=== PATIENT | female | born 1975 | race Caucasian/White ===

== ENCOUNTER 2017-11-10 00:08 | Emergency (ER) | payer OTHER ==
[~2017-11-10] VITALS: Ht 160 cm; Wt 70.0 kg
[~2017-11-10 00:08] MED LIST: CITA20 PO; LORA1TAB PO
[2017-11-10 00:40] VITALS: BP 120/67; PULSE 87; RESP 18; TEMP 98.8; O2SAT 98
[2017-11-10] MEDS ORDERED: TRAZ1TAB14 PO (00:55)
[2017-11-10] MEDS ORDERED: PROT40TA PO (00:55)
[2017-11-10] MEDS ORDERED: LORA-474 PO (00:55)
[2017-11-10] MEDS ORDERED: INHALER (00:55)
[2017-11-10] MEDS ORDERED: TOPI200 PO (00:55)
[2017-11-10] MEDS ORDERED: SERO100T PO (00:55)
[2017-11-10 02:22] LABS: BACTERIA, URINE RARE /hpf; BILIRUBIN, URINE NEG (NEG); BLOOD, URINE NEG (NEG); GLUCOSE,URINE NEG (NEG); HYALINE CAST, URINE 1 /lpf (RARE); KETONE, URINE NEG (NEG); MUCUS URINE FEW /lpf (OCC); NITRITE,URINE NEG (NEG); SQUAMOUS EPITHELIAL CELL URINE 1 /hpf (0-5); URINE COLOR YELLOW (YELLW/STRAW); URINE LEUKOCYTE ESTERASE NEG (NEG)
[2017-11-10 02:24] LABS: ALBUMIN 3.5 GM/DL (3.4-5.0); ALT (GPT) 40 U/L (10-53); AST (GOT) 47 U/L (15-37); BICARBONATE 20.7 MEQ/L (21.0-32.0); BLOOD UREA NITROGEN 9 MG/DL (7-18); CALCIUM 8.1 MG/DL (8.5-10.1); CHLORIDE 114 MEQ/L (98-107); CREATININE 0.96 MG/DL (0.50-1.00); GLOMERULAR FILTRATION RATE 64 ML/MIN (>89); GLUCOSE,RANDOM 83 MG/DL (74-106); SODIUM (NA) 143 MEQ/L (136-145)
[2017-11-10 02:26] LABS: AUTOMATED NEUTROPHIL # 3.7 TH/MM3 (1.8-7.7); BASOPHIL # 0.1 TH/MM3 (0-0.2); BASOPHIL % 0.8 % (0.0-2.0); EOSINOPHIL # 0.3 TH/MM3 (0-0.4); EOSINOPHIL % 5.4 % (0.0-4.0); HEMATOCRIT 32.4 % (35.0-46.0); HEMOGLOBIN 10.9 GM/DL (11.6-15.3); LYMPH % 31.9 % (9.0-44.0); MEAN CELL VOLUME 80.2 FL (80.0-100.0); MEAN CORPUSCULAR HGB CONC 33.7 % (32.0-36.0); MEAN PLATELET VOLUME 10.4 FL (7.0-11.0); MONOCYTE # 0.3 TH/MM3 (0-0.9); NEUT % 56.9 % (16.0-70.0); PLATELET COUNT 195 TH/MM3 (150-450); RED BLOOD COUNT 4.04 MIL/MM3 (4.00-5.30); RED CELL DISTRIBUTION WIDTH 14.1 % (11.6-17.2); WHITE BLOOD COUNT 6.4 TH/MM3 (4.0-11.0)
[2017-11-10 02:34] LABS: ACETAMINOPHEN LESS THAN 2.0 MCG/ML (10.0-30.0); ALKALINE PHOSPHATASE 138 U/L (45-117); TOTAL BILIRUBIN ADULT 0.2 MG/DL (0.2-1.0); TOTAL PROTEIN 7.3 GM/DL (6.4-8.2)
[2017-11-10] MEDS ORDERED: IBUPROFEN 600 MG TAB PO ONE (02:45)
--- NOTE | 2017-11-10 02:54 | PD ---
HPI Chief Complaint: Psychiatric Symptoms Time Seen by Provider: 00:53 Travel History International Travel<30 days: No Contact w/Intl Traveler<30days: No Traveled to known affect area: No History of Present Illness HPI 42-year-old female presents emergency department under Stallworth act by PD. The patient allegedly has been taking more than her prescribed Ativan. She states that she has been extremely stressed at home with her family. She denies any suicidal homicidal ideation. She does complain of lower back pain. She denies any dysuria or frequency. No vaginal discharge or abnormal bleeding. PFSH Past Medical History Asthma: Yes Bipolar Disorder: Yes Anxiety: Yes Diabetes: No Diminished Hearing: No Psychiatric: Yes Tetanus Vaccination: < 5 Years ?: Not : 3 Para: 1 Past Surgical History Cholecystectomy: Yes (1995) Hysterectomy: Yes Social History Alcohol Use: No Tobacco Use: No Substance Use: No Allergies-Medications (Allergen,Severity, Reaction): Coded Allergies: cat dander (Unverified Allergy, Severe, 11/10/17) iodine (Unverified Allergy, Severe, Fever, 11/10/17) Fever, Hives, Throat swells up. milk (Unverified Allergy, Severe, Fever, 11/10/17) Fever, Hives, Throat swells up. potassium iodide (Unverified Allergy, Severe, Fever, 11/10/17) Fever, Hives, Throat swells up. povidone-iodine (Unverified Allergy, Severe, Fever, 11/10/17) Fever, Hives, Throat swells up. sodium iodide (Unverified Allergy, Severe, Fever, 11/10/17) Fever, Hives, Throat swells up. sodium iodide (Unverified Allergy, Severe, Fever, 11/10/17) Fever, Hives, Throat swells up. Reported Meds & Prescriptions Reported Meds & Active Scripts Active Reported [Inhaler] Seroquel (Quetiapine Fumarate) 100 Mg Tab 150 Mg PO DAILY Trazodone (Trazodone HCl) 150 Mg Tablet 150 Mg PO HS Topamax (Topiramate) 200 Mg Tab 200 Mg PO BID Protonix (Pantoprazole Sodium) 40 Mg Tab 40 Mg PO DAILY Ativan (Lorazepam) 1 Mg Tab 1 Mg PO Q6H PRN Review of Systems General / Constitutional: No: Fever Eyes: No: Visual changes HENT: No: Headaches Cardiovascular: No: Chest Pain or Discomfort Respiratory: No: Shortness of Breath Gastrointestinal: No: Abdominal Pain Genitourinary: No: Dysuria Musculoskeletal: Positive: Pain, No: Myalgias, Arthralgias, Limited ROM Skin: No Rash Neurologic: No: Weakness Psychiatric: Positive: Depression, Mood Disorder, No: Suicidal Ideations, Disorder of Thought, Substance Abuse, Homicidal Ideation Endocrine: No: Polydipsia Hematologic/Lymphatic: No: Easy Bruising Physical Exam Narrative GENERAL: Well-nourished, well-developed patient. SKIN: Warm and dry. HEAD: Normocephalic and atraumatic. EYES: No scleral icterus. No injection or drainage. ENT: No nasal drainage noted. Mucous membranes pink. Airway patent. NECK: Supple, trachea midline. Moves head freely without obvious discomfort. CARDIOVASCULAR: Regular rate and rhythm without murmurs, gallops, or rubs. RESPIRATORY: Breath sounds equal bilaterally. No accessory muscle use. GASTROINTESTINAL: Abdomen soft, non-tender, nondistended. EXTREMITIES: No cyanosis or edema. BACK: Tender lower lumbar region without obvious deformity. No CVA tenderness. NEURO: Patient is alert and oriented. no sensorimotor deficits. Nonfocal. Normal speech. PSYCH: No delusions. No auditory or visual hallucinations. Data Data Last Documented VS Vital Signs Date Time Temp Pulse Resp B/P (MAP) Pulse Ox O2 Delivery O2 Flow Rate FiO2 11/10/17 00:40 98.8 87 18 120/67 (84) 98 Orders Orders Complete Blood Count With Diff (11/10/17 00:52) Comprehensive Metabolic Panel (11/10/17 00:52) Thyroid Stimulating Hormone (11/10/17 00:52) Urinalysis - C+S If Indicated (11/10/17 00:52) Ed Urine Pregnancytest Poc (11/10/17 00:52) Psych Screen (11/10/17 00:52) Drug Screen, Random Urine (11/10/17 00:52) Alcohol (Ethanol) (11/10/17 00:52) Salicylates (Aspirin) (11/10/17 00:52) Tylenol (Acetaminophen) (11/10/17 00:52) Ibuprofen (Motrin) (11/10/17 02:45) Labs Laboratory Tests Test 11/10/17 01:20 White Blood Count 6.4 TH/MM3 Red Blood Count 4.04 MIL/MM3 Hemoglobin 10.9 GM/DL Hematocrit 32.4 % Mean Corpuscular Volume 80.2 FL Mean Corpuscular Hemoglobin 27.0 PG Mean Corpuscular Hemoglobin Concent 33.7 % Red Cell Distribution Width 14.1 % Platelet Count 195 TH/MM3 Mean Platelet Volume 10.4 FL Neutrophils (%) (Auto) 56.9 % Lymphocytes (%) (Auto) 31.9 % Monocytes (%) (Auto) 5.0 % Eosinophils (%) (Auto) 5.4 % Basophils (%) (Auto) 0.8 % Neutrophils # (Auto) 3.7 TH/MM3 Lymphocytes # (Auto) 2.0 TH/MM3 Monocytes # (Auto) 0.3 TH/MM3 Eosinophils # (Auto) 0.3 TH/MM3 Basophils # (Auto) 0.1 TH/MM3 CBC Comment DIFF FINAL Differential Comment Urine Color YELLOW Urine Turbidity CLEAR Urine pH 6.0 Urine Specific [place] 1.020 Urine Protein NEG mg/dL Urine Glucose (UA) NEG mg/dL Urine Ketones NEG mg/dL Urine Occult Blood NEG Urine Nitrite NEG Urine Bilirubin NEG Urine Urobilinogen LESS THAN 2.0 MG/DL Urine Leukocyte Esterase NEG Urine WBC 2 /hpf Urine Squamous Epithelial Cells 1 /hpf Urine Bacteria RARE /hpf Urine Hyaline Casts 1 /lpf Urine Mucus FEW /lpf Microscopic Urinalysis Comment CULT NOT INDICATED Blood Urea Nitrogen 9 MG/DL Creatinine 0.96 MG/DL Random Glucose 83 MG/DL Total Protein 7.3 GM/DL Albumin 3.5 GM/DL Calcium Level 8.1 MG/DL Alkaline Phosphatase 138 U/L Aspartate Amino Transf (AST/SGOT) 47 U/L Alanine Aminotransferase (ALT/SGPT) 40 U/L Total Bilirubin 0.2 MG/DL Sodium Level 143 MEQ/L Potassium Level 3.6 MEQ/L Chloride Level 114 MEQ/L Carbon Dioxide Level 20.7 MEQ/L Anion Gap 8 MEQ/L Estimat Glomerular Filtration Rate 64 ML/MIN Thyroid Stimulating Hormone 3rd Gen 0.679 uIU/ML Salicylates Level LESS THAN 1.7 MG/DL Urine Opiates Screen POS Acetaminophen Level LESS THAN 2.0 MCG/ML Urine Barbiturates Screen NEG Urine Amphetamines Screen NEG Urine Benzodiazepines Screen NEG Urine Cocaine Screen NEG Urine Cannabinoids Screen NEG Ethyl Alcohol Level LESS THAN 3 MG/DL MDM Medical Decision Making Medical Screen Exam Complete: Yes Emergency Medical Condition: Yes Medical Record Reviewed: Yes Interpretation(s) Laboratory Tests Test 11/10/17 01:20 White Blood Count 6.4 TH/MM3 Red Blood Count 4.04 MIL/MM3 Hemoglobin 10.9 GM/DL Hematocrit 32.4 % Mean Corpuscular Volume 80.2 FL Mean Corpuscular Hemoglobin 27.0 PG Mean Corpuscular Hemoglobin Concent 33.7 % Red Cell Distribution Width 14.1 % Platelet Count 195 TH/MM3 Mean Platelet Volume 10.4 FL Neutrophils (%) (Auto) 56.9 % Lymphocytes (%) (Auto) 31.9 % Monocytes (%) (Auto) 5.0 % Eosinophils (%) (Auto) 5.4 % Basophils (%) (Auto) 0.8 % Neutrophils # (Auto) 3.7 TH/MM3 Lymphocytes # (Auto) 2.0 TH/MM3 Monocytes # (Auto) 0.3 TH/MM3 Eosinophils # (Auto) 0.3 TH/MM3 Basophils # (Auto) 0.1 TH/MM3 CBC Comment DIFF FINAL Differential Comment Urine Color YELLOW Urine Turbidity CLEAR Urine pH 6.0 Urine Specific [place] 1.020 Urine Protein NEG mg/dL Urine Glucose (UA) NEG mg/dL Urine Ketones NEG mg/dL Urine Occult Blood NEG Urine Nitrite NEG Urine Bilirubin NEG Urine Urobilinogen LESS THAN 2.0 MG/DL Urine Leukocyte Esterase NEG Urine WBC 2 /hpf Urine Squamous Epithelial Cells 1 /hpf Urine Bacteria RARE /hpf Urine Hyaline Casts 1 /lpf Urine Mucus FEW /lpf Microscopic Urinalysis Comment CULT NOT INDICATED Blood Urea Nitrogen 9 MG/DL Creatinine 0.96 MG/DL Random Glucose 83 MG/DL Total Protein 7.3 GM/DL Albumin 3.5 GM/DL Calcium Level 8.1 MG/DL Alkaline Phosphatase 138 U/L Aspartate Amino Transf (AST/SGOT) 47 U/L Alanine Aminotransferase (ALT/SGPT) 40 U/L Total Bilirubin 0.2 MG/DL Sodium Level 143 MEQ/L Potassium Level 3.6 MEQ/L Chloride Level 114 MEQ/L Carbon Dioxide Level 20.7 MEQ/L Anion Gap 8 MEQ/L Estimat Glomerular Filtration Rate 64 ML/MIN Thyroid Stimulating Hormone 3rd Gen 0.679 uIU/ML Salicylates Level LESS THAN 1.7 MG/DL Urine Opiates Screen POS Acetaminophen Level LESS THAN 2.0 MCG/ML Urine Barbiturates Screen NEG Urine Amphetamines Screen NEG Urine Benzodiazepines Screen NEG Urine Cocaine Screen NEG Urine Cannabinoids Screen NEG Ethyl Alcohol Level LESS THAN 3 MG/DL Differential Diagnosis MDM: High Differential diagnoses: Schizophrenia, schizoaffective disorder, bipolar, anxiety, depression, adjustment reaction, mood disorder NOS, ODD, depressive disorder NOS, dementia, dementia with agitation, psychosis NOS, substance induced mood disorder, DMDD, Asperger syndrome, infection,electrolyte abnormality, malingering. Narrative Course Mental health screening discussed with the patient. Psychiatric screen ordered. The patient reports taking Ativan for anxiety. Her drug screen is negative for benzos but is positive for opiates. She denies opiates. The patient has been medically cleared. This is medical clearance for psychiatric admission Diagnosis Primary Impression: Medical clearance for psychiatric admission Condition: Russell Goodman Nov 10, 2017 02:54
[2017-11-10 03:55] VITALS: BP 110/53; PULSE 84; RESP 16; O2SAT 99
[2017-11-10 09:30] VITALS: BP 124/69; PULSE 88; RESP 18; O2SAT 99
[2017-11-10 19:05] VITALS: BP 107/58; PULSE 89; RESP 18
[2017-11-10] MEDS ORDERED: traZODone HCL 100 MG TAB PO SCH (21:00)
[2017-11-10] MEDS ORDERED: QUEtiapine FUMARATE 100 MG TAB PO SCH (21:00)
[2017-11-10 22:38] VITALS: BP 107/55; PULSE 93; RESP 17; TEMP 99; O2SAT 100
[2017-11-11 02:35] VITALS: BP 93/51; PULSE 66; RESP 18; TEMP 98.1; O2SAT 100
[2017-11-11 06:41] VITALS: BP 97/53; PULSE 70; RESP 18; TEMP 98.2; O2SAT 99
--- NOTE | 2017-11-11 10:27 | PD ---
History of Present Illness Chief Complaint: adjustment disorder Time Seen by Provider: 09:45 Travel History International Travel<30 Days: No Contact w/Intl Traveler<30days: No Known affected area: No Legal Status Legal Status: St[place]worth Act [facility] [facility] Comment: SIGNED BY: JUAN ALBERTO GONZALEZ # [id number], 11/09/17 @ [id number] History of Present Illness: 42 year-old , female presents under a Stallworth Act with [facility]'s office. Patient has not been to this facility for several years , however she reports admissions at [facility]. She reports a history of bipolar and schizophrenia, and states that she is compliant with her medications. Reviewed electronic medical record, labs, and discussed case with staff. Toxicology screen is positive for opiates. Patient evaluated in her room in J pod. She is awake, alert, and oriented. Her speech is clear, logical, and organized. She denies thoughts of self harm, homicidal ideation, visual and auditory hallucinations. I can elicit no delusional material. Her mood is good and her affect is euthymic. Patient does not appear to be internally stimulated. She reports that she has had a toothache that she took 1 of her husbands prescribed Percocet. She believes that the Percocet in conjunction with her other medications caused her change in behavior. Which does explain her toxicology screen. She also reports numerous stressors in her life. She does admit to previous attempts of suicide and inpatient admissions. PFS Past Medical History Asthma: Yes Bipolar Disorder: Yes Anxiety: Yes Diabetes: No Diminished Hearing: No Psychiatric: Yes Tetanus Vaccination: < 5 Years ?: Not : 3 Para: 1 Past Surgical History Cholecystectomy: Yes (1995) Hysterectomy: Yes Psychiatric History Psychiatric History History of multiple inpatient admissions. She reports established outpatient treatment and compliance with medication. Hx Psychiatric Treatment: PT REPORTS HISTORY OF DEPRESSION, ANXIETY, SCHIZOPHRENIA AND BIPOLAR History of Inpatient Treatment: Yes Guns or firearms in home: No Social History Denies tobacco use, alcohol use, and illicit substance use. Hx Alcohol Use: No Hx Tobacco Use: No Hx Substance Use: No (PT STATES SHE QUIT ALL DRUGS AND ALCOHOL 7 YEARS AGO) Other Substances Used: PT STATES SHE HAS BEEN TAKING PERCOCET AND LORITAB FOR DENTAL PAIN Hx of Substance Use Treatment: No Family Psychiatric History Patient reports history of familial suicide as well as mental illness diagnoses. Allergies-Medications (Allergen,Severity, Reaction): Coded Allergies: cat dander (Unverified Allergy, Severe, 11/10/17) iodine (Unverified Allergy, Severe, Fever, 11/10/17) Fever, Hives, Throat swells up. milk (Unverified Allergy, Severe, Fever, 11/10/17) Fever, Hives, Throat swells up. potassium iodide (Unverified Allergy, Severe, Fever, 11/10/17) Fever, Hives, Throat swells up. povidone-iodine (Unverified Allergy, Severe, Fever, 11/10/17) Fever, Hives, Throat swells up. sodium iodide (Unverified Allergy, Severe, Fever, 11/10/17) Fever, Hives, Throat swells up. sodium iodide (Unverified Allergy, Severe, Fever, 11/10/17) Fever, Hives, Throat swells up. Reported Meds & Prescriptions Reported Meds & Active Scripts Active Reported [Inhaler] Seroquel (Quetiapine Fumarate) 100 Mg Tab 150 Mg PO DAILY Trazodone (Trazodone HCl) 150 Mg Tablet 150 Mg PO HS Topamax (Topiramate) 200 Mg Tab 200 Mg PO BID Protonix (Pantoprazole Sodium) 40 Mg Tab 40 Mg PO DAILY Ativan (Lorazepam) 1 Mg Tab 1 Mg PO Q6H PRN Mental Status Examination Appearance: Appropriate, Well dressed/well groomed Consciousness: Alert Orientation: x4 Motor Activity: Normal gait Speech: Unremarkable Language: Adequate Fund of Knowledge: Adequate Attention and Concentration: Adequate Memory: Unremarkable Mood: Appropriate, Good Affect: Appropriate, Euthymic Thought Process & Associations: Intact Thought Content: Appropriate Hallucination Type: None Delusion Type: None Suicidal Ideation: No Suicidal Plan: No Suicidal Intention: No Homicidal Ideation: No Homicidal Plan: No Homicidal Intention: No Insight: Adequate Judgment: Adequate [facility] Medical Decision Making Assessment/Plan This is a 42-year-old , female who is brought into this facility under a Stallworth act placed by the [facility]'s office. The Stallworth act stated that she was very stressed, making paranoid statements about her family, was unable to "provide appropriate answers to basic questions". Patient relates that she had taken some pain medication family members due to a toothache. She believes that the combination of her psychotropic medications with the use pain medications encountered for her altered status. This morning , patient is awake, alert, and oriented. Her speech is clear, logical, and organized. Her mood is good and her affect is euthymic. Spoke with patient's with her permission, Shon [phone], who corroborates the patient's story. He states that she has been under some stress and has had some moodiness. The patient relates this to having run out of her Ativan at one point and going through withdrawals as well as taking the pain medications for her toothache. Patient's toxicology screen was negative for benzodiazepines which would also bear out the story. At this time patient does not meet Stallworth act criteria nor inpatient admission criteria. Spoke with Dr. Smith, who interviewed patient and concurred with my assessment. He is therefore lifted her Stallworth act. She has established outpatient care and is compliant with her medication per her and her . Her is willing to pick her up and states that he has no concerns that she will harm herself. Patient will be provided with information for a dental clinic in the area as well as [facility] information. She will be discharged with instructions to return here if her condition should worsen. Orders Orders Diet Regular Basic (11/10/17 Dinner) Trazodone (Desyrel) (11/10/17 21:00) Quetiapine (Seroquel) (11/10/17 21:00) Diet Regular Basic (11/11/17 Breakfast) Diet Regular Basic (11/11/17 Lunch) Results Vital Signs Date Time Temp Pulse Resp B/P (MAP) Pulse Ox O2 Delivery O2 Flow Rate FiO2 11/11/17 06:41 98.2 70 18 97/53 (68) 99 Room Air 11/11/17 02:35 98.1 66 18 93/51 (65) 100 Room Air 11/10/17 22:38 99.0 93 17 107/55 (72) 100 Room Air 11/10/17 19:05 89 18 107/58 (74) Room Air Diagnosis Primary Impression: Adjustment disorder Psychiatrically Cleared: Yes Condition: Stable Meghana Corona Nov 11, 2017 10:27
--- NOTE | 2017-11-11 10:35 | PD ---
Physical Exam Time Seen by Provider: 10:[address] Smith has evaluated patient, lifted Stallworth act and cleared patient for discharge. Data Data Last Documented VS Vital Signs Date Time Temp Pulse Resp B/P (MAP) Pulse Ox O2 Delivery O2 Flow Rate FiO2 11/11/17 06:41 98.2 70 18 97/53 (68) 99 Room Air Orders Orders Complete Blood Count With Diff (11/10/17 00:52) Comprehensive Metabolic Panel (11/10/17 00:52) Thyroid Stimulating Hormone (11/10/17 00:52) Urinalysis - C+S If Indicated (11/10/17 00:52) Ed Urine Pregnancytest Poc (11/10/17 00:52) Psych Screen (11/10/17 00:52) Drug Screen, Random Urine (11/10/17 00:52) Alcohol (Ethanol) (11/10/17 00:52) Salicylates (Aspirin) (11/10/17 00:52) Tylenol (Acetaminophen) (11/10/17 00:52) Ibuprofen (Motrin) (11/10/17 02:45) Diet Regular Basic (11/10/17 Breakfast) Diet Regular Basic (11/10/17 Dinner) Trazodone (Desyrel) (11/10/17 21:00) Quetiapine (Seroquel) (11/10/17 21:00) Diet Regular Basic (11/11/17 Breakfast) Diet Regular Basic (11/11/17 Lunch) Topiramate (Topamax) (11/11/17 10:15) Pantoprazole (Protonix) (11/11/17 10:15) Labs Laboratory Tests Test 11/10/17 01:20 White Blood Count 6.4 TH/MM3 Red Blood Count 4.04 MIL/MM3 Hemoglobin 10.9 GM/DL Hematocrit 32.4 % Mean Corpuscular Volume 80.2 FL Mean Corpuscular Hemoglobin 27.0 PG Mean Corpuscular Hemoglobin Concent 33.7 % Red Cell Distribution Width 14.1 % Platelet Count 195 TH/MM3 Mean Platelet Volume 10.4 FL Neutrophils (%) (Auto) 56.9 % Lymphocytes (%) (Auto) 31.9 % Monocytes (%) (Auto) 5.0 % Eosinophils (%) (Auto) 5.4 % Basophils (%) (Auto) 0.8 % Neutrophils # (Auto) 3.7 TH/MM3 Lymphocytes # (Auto) 2.0 TH/MM3 Monocytes # (Auto) 0.3 TH/MM3 Eosinophils # (Auto) 0.3 TH/MM3 Basophils # (Auto) 0.1 TH/MM3 CBC Comment DIFF FINAL Differential Comment Urine Color YELLOW Urine Turbidity CLEAR Urine pH 6.0 Urine Specific [place] 1.020 Urine Protein NEG mg/dL Urine Glucose (UA) NEG mg/dL Urine Ketones NEG mg/dL Urine Occult Blood NEG Urine Nitrite NEG Urine Bilirubin NEG Urine Urobilinogen LESS THAN 2.0 MG/DL Urine Leukocyte Esterase NEG Urine WBC 2 /hpf Urine Squamous Epithelial Cells 1 /hpf Urine Bacteria RARE /hpf Urine Hyaline Casts 1 /lpf Urine Mucus FEW /lpf Microscopic Urinalysis Comment CULT NOT INDICATED Blood Urea Nitrogen 9 MG/DL Creatinine 0.96 MG/DL Random Glucose 83 MG/DL Total Protein 7.3 GM/DL Albumin 3.5 GM/DL Calcium Level 8.1 MG/DL Alkaline Phosphatase 138 U/L Aspartate Amino Transf (AST/SGOT) 47 U/L Alanine Aminotransferase (ALT/SGPT) 40 U/L Total Bilirubin 0.2 MG/DL Sodium Level 143 MEQ/L Potassium Level 3.6 MEQ/L Chloride Level 114 MEQ/L Carbon Dioxide Level 20.7 MEQ/L Anion Gap 8 MEQ/L Estimat Glomerular Filtration Rate 64 ML/MIN Thyroid Stimulating Hormone 3rd Gen 0.679 uIU/ML Salicylates Level LESS THAN 1.7 MG/DL Urine Opiates Screen POS Acetaminophen Level LESS THAN 2.0 MCG/ML Urine Barbiturates Screen NEG Urine Amphetamines Screen NEG Urine Benzodiazepines Screen NEG Urine Cocaine Screen NEG Urine Cannabinoids Screen NEG Ethyl Alcohol Level LESS THAN 3 MG/DL MDM Supervised Visit with CLAU: No Narrative Course Dr. Smith has evaluated patient, lifted Stallworth act and cleared patient for discharge. Patient contracts safety. Denies suicidal or homicidal ideations. Patient will be provided community resource packet to [facility] for follow-up. Has friends and family for support. Patient was medically cleared by alternate provider prior to psych screening. Patient has been evaluated by psychiatry and and is now cleared for discharge. Diagnosis Primary Impression: Adjustment disorder Referrals: [facility] (Out patient) [facility] Primary Care Physician Psychiatrist Pankaj MONTEZ Behavioral Patient Instructions: General Instructions, Mood Disorders (ED) Additional Instruction: Contract safety to your self and others Follow-up with psychiatry Follow-up with primary care provider Follow-up with Kai Chacon/MELIDA Return to the emergency department immediately with worsening of symptoms Med/Other Pt SpecificInfo: No Change to Meds, No Meds Exist/No RX given Disposition: 01 DISCHARGE HOME Condition: Stable Lucinda Peng Nov 11, 2017 10:35
[2017-11-11] MEDS ORDERED: PANTOPRAZOLE SOD 40 MG DELAYED RELEASE TAB PO ONE (12:00)
[2017-11-11] MEDS ORDERED: TOPIRAMATE 200 MG TAB PO ONE (12:00)
--- NOTE | 2017-11-11 15:09 | PD.PSY.CON ---
Provisional Diagnosis Admission Date [facility] [facility]. Adjustment disorder with depressed mood History of Present Illness Service Psychiatry Consult Requested By Medicine Reason for Consult Psychiatry Primary Care Physician No Primary Care Physician HPI Patient was seen this morning at 11 AM 42 year-old , female presents under a [place] Act with [facility]'s office. Patient has not been to this facility for several years , however she reports admissions at [facility]. She reports a history of bipolar and schizophrenia, and states that she is compliant with her medications.Reviewed electronic medical record, labs, and discussed case with staff. Toxicology screen is positive for opiates. Patient evaluated in her room in J pod. She is awake, alert, and oriented. Her speech is clear, logical, and organized. She denies thoughts of self harm, homicidal ideation, visual and auditory hallucinations. I can elicit no delusional material. Her mood is good and her affect is euthymic. Patient does not appear to be internally stimulated. She reports that she has had a toothache that she took 1 of her husbands prescribed Percocet. She believes that the Percocet in conjunction with her other medications caused her change in behavior. Which does explain her toxicology screen. She also reports numerous stressors in her life. She does admit to previous attempts of suicide and inpatient admissions. Review of Systems Constitutional: DENIES: Diaphoretic episodes, Fatigue, Fever, Weight gain, Weight loss, Chills, Dizziness, Change in appetite, Night Sweats Endocrine: DENIES: Abnorml menstrual pattern, Heat/cold intolerance, Polydipsia , Polyuria, Polyphagia Eyes: DENIES: Blurred vision, Diplopia, Eye inflammation, Eye pain, Vision loss , Photosensitivity, Double Vision Ears, nose, mouth, throat: DENIES: Tinnitus, Hearing loss, Vertigo, Nasal discharge, Oral lesions, Throat pain, Hoarseness, Ear Pain, Running Nose, Epistaxis, Sinus Pain, Toothache, Odynophagia Respiratory: DENIES: Apneas, Cough, Snoring, Wheezing, Hemoptysis, Sputum production, Shortness of breath Cardiovascular: DENIES: Chest pain, Palpitations, Syncope, Dyspnea on Exertion , PND, Lower Extremity Edema, Orthopnea, Claudication Gastrointestinal: DENIES: Abdominal pain, Black stools, Bloody stools, Constipation, Diarrhea, Nausea, Vomiting, Difficulty Swallowing, Anorexia Genitourinary: DENIES: Abnormal vaginal bleeding, Dysmenorrhea, Dyspareunia, Sexual dysfunction, Urinary frequency, Urinary incontinence, Urgency, Hematuria , Dysuria, Nocturia, Vaginal discharge Musculoskeletal: DENIES: Joint pain, Muscle aches, Stiffness, Joint Swelling, Back pain, Neck pain Integumentary: DENIES: Abnormal pigmentation, Pruritus, Rash, Nail changes, Breast masses, Breast skin changes, Nipple discharge Hematologic/lymphatic: DENIES: Bruising, Lymphadenopathy Immunologic/allergic: DENIES: Eczema, Urticaria Neurologic: DENIES: Abnormal gait, Headache, Localized weakness, Paresthesias, Seizures, Speech Problems, Tremor, Poor Balance Psychiatric: DENIES: Anxiety, Confusion, Mood changes, Depression, Hallucinations, Agitation, Suicidal Ideation, Homicidal Ideation, Delusions Past Family Social History Coded Allergies: cat dander (Unverified Allergy, Severe, 11/10/17) iodine (Unverified Allergy, Severe, Fever, 11/10/17) Fever, Hives, Throat swells up. milk (Unverified Allergy, Severe, Fever, 11/10/17) Fever, Hives, Throat swells up. potassium iodide (Unverified Allergy, Severe, Fever, 11/10/17) Fever, Hives, Throat swells up. povidone-iodine (Unverified Allergy, Severe, Fever, 11/10/17) Fever, Hives, Throat swells up. sodium iodide (Unverified Allergy, Severe, Fever, 11/10/17) Fever, Hives, Throat swells up. sodium iodide (Unverified Allergy, Severe, Fever, 11/10/17) Fever, Hives, Throat swells up. Reported Medications [Inhaler] No Conflict Check 11/10/17 Quetiapine (Seroquel) 100 Mg Tab, 150 MG PO DAILY, #30 TAB 0 Refills 11/10/17 Trazodone (Trazodone) 150 Mg Tablet, 150 MG PO HS for Control Depression, #30 TAB 0 Refills 11/10/17 Topiramate (Topamax) 200 Mg Tab, 200 MG PO BID for Control Seizures, #60 TAB 0 Refills 11/10/17 Pantoprazole (Protonix) 40 Mg Tab, 40 MG PO DAILY for Reflux, #30 TAB 0 Refills 11/10/17 Lorazepam (Ativan) 1 Mg Tab, 1 MG PO Q6H Y for ANXIETY AND/OR AGITATION, #10 TAB 0 Refills 11/10/17 Physical Exam Vital Signs Vital Signs Date Time Temp Pulse Resp B/P (MAP) Pulse Ox O2 Delivery O2 Flow Rate FiO2 11/11/17 11:46 11/11/17 06:41 98.2 70 18 99 Room Air Mental Status Examination Appearance: Appropriate, Well dressed/well groomed Consciousness: Alert Orientation: x4 Motor Activity: Normal gait Speech: Unremarkable Language: Adequate Fund of Knowledge: Adequate Attention and Concentration: Adequate Memory: Unremarkable Mood: Appropriate, Good Affect: Appropriate, Euthymic Thought Process & Associations: Intact Thought Content: Appropriate Hallucination Type: None Delusion Type: None Suicidal Ideation: No Suicidal Plan: No Suicidal Intention: No Homicidal Ideation: No Homicidal Plan: No Homicidal Intention: No Insight: Adequate Judgment: Adequate Assessment & Plan Problem List: (1) Adjustment disorder with depressed mood ICD Codes: F43.21 - Adjustment disorder with depressed mood Assessment & Plan: At the moment of this evaluation the patient does not present any neuropsychiatric symptoms require immediate psychiatric intervention. The patient denies suicidal homicidal ideation, she denies visual and auditory hallucinations. She does not meet criteria for involuntary psychiatric admission at this moment. Assessment & Plan Estimated LOS: Kenneth Domingo MD Nov 11, 2017 15:09
== END 2017-11-11 11:47 | disposition home or self-care (01) ==
LOC: NEPD 00:08 → NEPJ 11-11 11:47
DX: F43.21 Adjustment disorder with depressed mood (principal); F31.9 Bipolar disorder, unspecified; F20.9 Schizophrenia, unspecified; K08.89 Other specified disorders of teeth and supporting structures; M54.5 Low back pain; J45.909 Unspecified asthma, uncomplicated; F41.9 Anxiety disorder, unspecified; Z79.899 Other long term (current) drug therapy
CPT/HCPCS: 80053; 80307; 81001; 84443; 84703; 85025; 99283